=== PATIENT | female | born 1950 | race Hispanic/Latino ===

== ENCOUNTER 2020-12-18 10:12 | Emergency (ER) | payer MEDICARE ==
[~2020-12-18] VITALS: Ht 152.4 cm; Wt 76.2 kg
[2020-12-18] MEDS ORDERED: VALIUM5 MG PO (10:43)
[2020-12-18] MEDS ORDERED: DEXAMETHASONE SOD PHOS 10 MG/1 ML VIAL IM ONE (10:45)
[2020-12-18] MEDS ORDERED: HYDROCODONE/APAP 5MG-325MG TAB PO ONE (10:45)
[2020-12-18] MEDS ORDERED: ONDANSETRON HCL 4 MG ORAL DISINTEGRATING TAB PO ONE (10:45)
[2020-12-18] MEDS ORDERED: ONDANSETRON HCL 4 MG ORAL DISINTEGRATING TAB ONE (10:56)
[2020-12-18] MEDS ORDERED: DEXAMETHASONE SOD PHOS INJ 4 MG/ML VIAL ONE (10:57)
[2020-12-18] MEDS ORDERED: HYDROCODONE/APAP 5MG-325MG TAB ONE (10:57)
== END 2020-12-18 11:19 | disposition home or self-care (01) ==
LOC: FSED 10:57
DX: M51.16 Intervertebral disc disorders with radiculopathy, lumbar region (principal); I10 Essential (primary) hypertension; E11.9 Type 2 diabetes mellitus without complications; G89.29 Other chronic pain
CPT/HCPCS: 96372; 99283; J1100 ×2; Q0162